=== PATIENT | female | born 1955 | race Caucasian/White ===

== ENCOUNTER 2017-11-20 10:19 | Emergency (ER) | payer BC ==
[~2017-11-20] VITALS: Ht 170.2 cm; Wt 113.0 kg
[~2017-11-20 10:19] MED LIST: AMOXICILLIN500 MG PO; CEPHALEXIN500 MG OR; FIORICET OR; FIORICET PO; LORTAB 5 OR; LORTAB 7.5 OR; MELOXICAM7.5 MG PO; MOTRIN800 MG OR; NAPROSYN500 MG PO; NO HOME MEDS; TYLENOL500 MG OR
[2017-11-20] MEDS ORDERED: SYNTHROID100 MCG PO (10:38)
[2017-11-20 11:49] LABS: INFLUENZA A NONE DETECTED (NONE DETECT); INFLUENZA B POSITIVE (NONE DETECT)
[2017-11-20] MEDS ORDERED: TAM75CAP PO (11:59)
[2017-11-20 12:09] VITALS: BP 137/97
== END 2017-11-20 12:14 | disposition home or self-care (01) | DRG 195 ==
LOC: ED 10:19
PROVIDERS: Family Medicine
DX: J10.1 Influenza due to other identified influenza virus with other respiratory manifestations (principal); H92.03 Otalgia, bilateral; R05 Cough; R09.89 Other specified symptoms and signs involving the circulatory and respiratory systems; R50.9 Fever, unspecified

== ENCOUNTER 2018-03-20 09:07 | Observation (INO) | payer BC ==
[~2018-03-20] VITALS: Ht 170.2 cm; Wt 112.0 kg
[~2018-03-20 09:07] MED LIST changes: +SYNTHROID100 MCG PO; +TAM75CAP PO
[2018-03-20 09:41] LABS: BUN 11 mg/dL (7-17); BUN/CREATININE RATIO 15 (12-20 (CALC)); CARBON DIOXIDE 27 mmol/l (22-30); CHLORIDE 105 mmol/l (95-108); CREATININE 0.7 mg/dL (0.5-1.0); GFR > 60 ML/MIN (>=60 (CALC)); GFR FOR AFR.AMER. > 60 ML/MIN (>=60 (CALC)); POTASSIUM 3.7 mmol/l (3.5-5.1)
[2018-03-20 09:46] LABS: ANION GAP 10 (6-22 (CALC)); SODIUM 138 mmol/l (137-146)
[2018-03-20 09:52] LABS: HEMATOCRIT 36.5 % (37.0-47.0); HEMOGLOBIN 11.3 g/dl (12.0-16.0); IMMATURE GRANULOCYTES 0.5 % (0.0-1.0); MEAN CELL VOLUME 80.2 fL CALC (80.0-100.0); MEAN CORPUSCULAR HGB 24.8 pG CALC (26.0-32.0); NEUT# 4.03 thou/uL (2.00-7.15); RED BLOOD COUNT 4.55 mill/uL (4.20-5.60); RED CELL DISTRI WIDTH 15.2 % (11.5-15.5)
[2018-03-20 11:03] VITALS: BP 123/84
[2018-03-20 14:21] LABS: URINE BILIRUBIN - DIPSTICK NEGATIVE (NEGATIVE); URINE BLOOD DIPSTICK NEGATIVE (NEGATIVE); URINE COLOR YELLOW; URINE GLUCOSE - DIPSTICK NEGATIVE (NEGATIVE); URINE KETONE NEGATIVE (NEGATIVE); URINE LEUK ESTERASE NEGATIVE (NEGATIVE); URINE NITRITE - DIPSTICK NEGATIVE (Negative); URINE PH 6.5 (4.5-8.0); URINE PROTEIN - DIPSTICK NEGATIVE (NEG-TRACE); URINE SPECIFIC GRAVITY <=1.005; URINE UROBILINOGEN - DIPSTICK 0.2 E.U./dL (0.2)
[2018-03-20 14:23] LABS: URINE CLARITY CLEAR
[2018-03-20 15:28] VITALS: BP 124/83
[2018-03-20 19:11] VITALS: BP 121/83
[2018-03-20 23:48] VITALS: BP 111/74
[2018-03-21 04:40] VITALS: BP 105/71
[2018-03-21 07:41] VITALS: BP 113/78
[2018-03-21] MEDS ORDERED: SYNTHROID88 MCG PO (08:14)
== END 2018-03-21 09:35 | disposition home or self-care (01) | DRG 313 ==
LOC: ED 09:07 → ED-I 09:58 → ED 10:10 → MS2 10:11
PROVIDERS: Family Medicine; Nurse Practitioner Family; ADMIT Internal Medicine; ATTEND Internal Medicine
DX: R07.2 Precordial pain (principal); E03.9 Hypothyroidism, unspecified; D64.9 Anemia, unspecified; Z85.41 Personal history of malignant neoplasm of cervix uteri; Z73.3 Stress, not elsewhere classified; Z68.38 Body mass index [BMI] 38.0-38.9, adult
CPT/HCPCS: G0378

== ENCOUNTER → 2018-11-14 | Outpatient (REF) ==
[~2018-11-14] MED LIST changes: +MECLIZINE25 MG PO; +ONDANSETRON4 MG PO; +SYNTHROID88 MCG PO
== END | disposition home or self-care (01) | DRG 951 ==
LOC: PAGE 09:00
PROVIDERS: ATTEND Nurse Practitioner Family
DX: Z23 Encounter for immunization (principal)

== ENCOUNTER 2018-12-06 08:32 | Emergency (ER) | payer OTHER ==
[~2018-12-06] VITALS: Ht 170.2 cm; Wt 110.0 kg
[~2018-12-06 08:32] MED LIST changes: -MECLIZINE25 MG PO; -ONDANSETRON4 MG PO
[2018-12-06 09:03] LABS: HEMATOCRIT 36.2 % (37.0-47.0); HEMOGLOBIN 11.1 g/dl (12.0-16.0); IMMATURE GRANULOCYTES 0.6 % (0.0-5.0); MEAN CELL VOLUME 84.2 fL CALC (80.0-100.0); MEAN CORPUSCULAR HGB 25.8 pG CALC (26.0-32.0); MEAN CORPUSCULAR HGB CONC 30.7 g/L CALC (32.0-36.0); NEUT# 4.04 thou/uL (2.00-7.15); RED BLOOD COUNT 4.3 mill/uL (4.20-5.60); RED CELL DISTRI WIDTH 15.7 % (11.5-15.5)
[2018-12-06 09:20] LABS: ALBUMIN 3.9 g/dL (3.2-5.0); ALKALINE PHOSPHATASE 74 u/l (38-126); ANION GAP 13 (6-22 (CALC)); BILIRUBIN, TOTAL 0.8 mg/dL (0.0-1.4); BUN 11 mg/dL (8-23); BUN/CREATININE RATIO 16 (12-20 (CALC)); CARBON DIOXIDE 25 mmol/l (22-30); CHLORIDE 106 mmol/l (95-108); CREATININE 0.7 mg/dL (0.5-1.0); GFR > 60 ML/MIN (>=60 (CALC)); GFR FOR AFR.AMER. > 60 ML/MIN (>=60 (CALC)); LIPASE 78 u/l (23-300); SGOT/AST 19 u/l (9-36); SODIUM 140 mmol/l (137-146); TOTAL PROTEIN 6.7 g/dL (6.3-8.2)
[2018-12-06] MEDS ORDERED: MECLIZINE25 MG PO (10:53)
[2018-12-06] MEDS ORDERED: ONDANSETRON4 MG PO (10:53)
[2018-12-06 11:20] VITALS: BP 140/78
== END 2018-12-06 11:20 | disposition home or self-care (01) ==
LOC: ED 08:32
PROVIDERS: Family Medicine
DX: R07.9 Chest pain, unspecified (principal); R42 Dizziness and giddiness; R11.2 Nausea with vomiting, unspecified
CPT/HCPCS: J2060

== ENCOUNTER → 2021-06-01 | Outpatient (REF) ==
[~2021-06-01] MED LIST changes: +MECLIZINE25 MG PO; +ONDANSETRON4 MG PO
== END | disposition home or self-care (01) | DRG 103 ==
LOC: LAB 13:16
PROVIDERS: ATTEND Family Medicine
DX: R51.9 Headache, unspecified (principal)

== ENCOUNTER 2024-03-25 11:39 | Emergency (ER) | payer OTHER, MEDICARE ==
[2024-03-25] VITALS (8 sets, daily range): BP systolic 121–145; BP diastolic 74–96
[~2024-03-25] VITALS: Ht 170.2 cm; Wt 251.0 kg
[2024-03-25] MEDS ORDERED: KETOROLAC TROMETHAMINE 30 MG/ML SDV IV ONE (12:30)
[2024-03-25] MEDS ORDERED: methylPREDNISolone SODIUM SUCC 125 MG/2 ML SDV IV ONE (12:30)
[2024-03-25] MEDS ORDERED: SODIUM CHLORIDE 0.9% 1,000 ML IV ONE (12:30)
[2024-03-25] MEDS ORDERED: AMPICILLIN & SULBACTAM SODIUM 3 GM in SODIUM CHLORIDE 0.9% 100 ML IV ONE (12:35)
[2024-03-25 13:11] LABS: BASO% 0.6 % (0-3); EOS% 2.2 % (0-8); HEMATOCRIT 32.4 % (37.0-47.0); HEMOGLOBIN 9.5 g/dl (12.0-16.0); IMMATURE GRANULOCYTES 0.4 % (0.0-5.0); LYMPH% 12.3 % (15-41); MEAN CELL VOLUME 77.7 fL CALC (80.0-100.0); MEAN CORPUSCULAR HGB 22.8 pG CALC (26.0-32.0); MEAN CORPUSCULAR HGB CONC 29.3 g/dL CAL (32.0-36.0); MONO% 6.7 % (2-13); NEUT# 6.15 thou/uL (2.00-7.15); NEUT% 77.8 % (42-76); RED BLOOD COUNT 4.17 mill/uL (4.20-5.60); RED CELL DISTRI WIDTH 16.8 % (11.5-15.5)
[2024-03-25] MEDS ORDERED: IPRATROPIUM-Albuterol 0.5MG-2.5MG/3 ML NEB ONE (13:20)
[2024-03-25 13:24] LABS: BILIRUBIN, TOTAL 0.9 mg/dL (0.02-1.3); CREATININE 0.8 mg/dL (0.5-1.0); POTASSIUM 3.7 mmol/l (3.5-5.1); TOTAL PROTEIN 7.1 g/dL (6.3-8.2)
[2024-03-25] MEDS ORDERED: PROAIR HFA IN ×2 (15:55→16:02)
[2024-03-25] MEDS ORDERED: PREDNISONE20 MG PO ×2 (15:55→16:01)
[2024-03-25] MEDS ORDERED: AMOX/K CLAV875 M1 PO ×2 (16:03→17:01)
== END 2024-03-25 16:20 | disposition home or self-care (01) | DRG 153 ==
LOC: ED 11:39
PROVIDERS: Nurse Practitioner
DX: J01.90 Acute sinusitis, unspecified (principal); Z20.822 Contact with and (suspected) exposure to COVID-19
CPT/HCPCS: Q9967

== ENCOUNTER 2024-09-10 10:53 | Inpatient (IN) | payer OTHER, MEDICARE ==
[~2024-09-10] VITALS: Ht 170.2 cm; Wt 106.0 kg
[2024-09-10] VITALS (19 sets, daily range): BP systolic 104–148; BP diastolic 57–85
[~2024-09-10 10:53] MED LIST changes: +AMOX/K CLAV875 M1 PO; +PREDNISONE20 MG PO; +PROAIR HFA IN
[2024-09-10] MEDS ORDERED: ACETAMINOPHEN 500 MG TAB PO ONE (11:40)
[2024-09-10 11:41] LABS: BASO% 0.2 % (0-3); HEMATOCRIT 30.5 % (37.0-47.0); HEMOGLOBIN 8.5 g/dl (12.0-16.0); IMMATURE GRANULOCYTES 0.2 % (0.0-5.0); LYMPH% 6.3 % (15-41); MEAN CELL VOLUME 72.1 fL CALC (80.0-100.0); MEAN CORPUSCULAR HGB 20.1 pG CALC (26.0-32.0); MEAN CORPUSCULAR HGB CONC 27.9 g/dL CAL (32.0-36.0); MONO% 4.7 % (2-13); NEUT# 11.39 thou/uL (2.00-7.15); NEUT% 88.6 % (42-76); RED BLOOD COUNT 4.23 mill/uL (4.20-5.60); RED CELL DISTRI WIDTH 18.3 % (11.5-15.5)
[2024-09-10] MEDS ORDERED: ONDANSETRON HCl 4 MG/2 ML SDV IV ONE (11:50)
[2024-09-10] MEDS ORDERED: SODIUM CHLORIDE 0.9% 1,000 ML IV ONE (11:50)
[2024-09-10 11:53] LABS: ALBUMIN 4.2 g/dL (3.2-5.0); TOTAL PROTEIN 6.8 g/dL (6.3-8.2)
[2024-09-10] MEDS ORDERED: cefTRIAXone SODIUM 2 GM in SODIUM CHLORIDE 0.9% 100 ML IV ONE (12:05)
[2024-09-10] MEDS ORDERED: AZITHROMYCIN 500 MG in SODIUM CHLORIDE 0.9% 250 ML IV ONE (12:05)
[2024-09-10 12:17] LABS: BILIRUBIN, TOTAL 1.5 mg/dL (0.02-1.3)
[2024-09-10 12:20] LABS: CREATININE 0.8 mg/dL (0.5-1.0)
[2024-09-10] MEDS ORDERED: PROMETHAZINE HCL 25 MG/ML AMP IM ONE (12:50)
[2024-09-10] MEDS ORDERED: MAGNESIUM HYDROXIDE 30 ML UDC PO PRN (17:05)
[2024-09-10] MEDS ORDERED: IPRATROPIUM-Albuterol 0.5MG-2.5MG/3 ML NEB PRN (17:05)
[2024-09-10] MEDS ORDERED: ACETAMINOPHEN 325 MG/TAB PO PRN (17:05)
[2024-09-10] MEDS ORDERED: SODIUM CHLORIDE 0.9% 1,000 ML IV PRN (17:05)
[2024-09-10] MEDS ORDERED: IBUPROFEN 600 MG/TAB PO ONE (17:45)
[2024-09-10] MEDS ORDERED: ENOXAPARIN SODIUM 40 MG/0.4 ML SYR SC SCH (21:00)
[2024-09-11] VITALS (17 sets, daily range): BP systolic 93–136; BP diastolic 49–77
[2024-09-11 05:20] LABS: CREATININE 0.8 mg/dL (0.5-1.0); MAGNESIUM 2.1 mg/dL (1.6-2.3); POTASSIUM 3.6 mmol/l (3.5-5.1)
[2024-09-11 05:26] LABS: ALBUMIN 3.1 g/dL (3.2-5.0); TOTAL PROTEIN 5.3 g/dL (6.3-8.2)
[2024-09-11 05:39] LABS: BASO% 0.3 % (0-3); EOS% 0.1 % (0-8); HEMATOCRIT 26.4 % (37.0-47.0); HEMOGLOBIN 7.2 g/dl (12.0-16.0); IMMATURE GRANULOCYTES 0.3 % (0.0-5.0); LYMPH% 9.4 % (15-41); MEAN CELL VOLUME 73.5 fL CALC (80.0-100.0); MEAN CORPUSCULAR HGB 20.1 pG CALC (26.0-32.0); MEAN CORPUSCULAR HGB CONC 27.3 g/dL CAL (32.0-36.0); MONO% 4.8 % (2-13); NEUT# 10.08 thou/uL (2.00-7.15); NEUT% 85.1 % (42-76); RED BLOOD COUNT 3.59 mill/uL (4.20-5.60); RED CELL DISTRI WIDTH 18.6 % (11.5-15.5)
[2024-09-11] MEDS ORDERED: IBUPROFEN 600 MG/TAB PO PRN (12:20)
[2024-09-11] MEDS ORDERED: AZITHROMYCIN 500 MG in SODIUM CHLORIDE 0.9% 250 ML IV SCH (13:00)
[2024-09-11] MEDS ORDERED: SODIUM CHLORIDE 0.9% 250 ML IV PRN (16:20)
[2024-09-11] MEDS ORDERED: FUROSEMIDE 40 MG/4 ML SDV IV SCH (22:00)
[2024-09-12] VITALS (10 sets, daily range): BP systolic 94–131; BP diastolic 58–79
[2024-09-12] MEDS ORDERED: FUROSEMIDE 40 MG/4 ML SDV IV SCH (00:50)
[2024-09-12 05:47] LABS: BASO% 0.7 % (0-3); EOS% 0.4 % (0-8); HEMATOCRIT 29.2 % (37.0-47.0); HEMOGLOBIN 8.8 g/dl (12.0-16.0); IMMATURE GRANULOCYTES 0.2 % (0.0-5.0); LYMPH% 16.9 % (15-41); MEAN CELL VOLUME 76.2 fL CALC (80.0-100.0); MEAN CORPUSCULAR HGB CONC 30.1 g/dL CAL (32.0-36.0); MONO% 6.9 % (2-13); NEUT# 6.88 thou/uL (2.00-7.15); NEUT% 74.9 % (42-76); RED BLOOD COUNT 3.83 mill/uL (4.20-5.60)
[2024-09-12 05:48] LABS: BILIRUBIN, TOTAL 1.2 mg/dL (0.02-1.3); CREATININE 0.8 mg/dL (0.5-1.0); MAGNESIUM 2.1 mg/dL (1.6-2.3); POTASSIUM 3.5 mmol/l (3.5-5.1); TOTAL PROTEIN 5.3 g/dL (6.3-8.2)
[2024-09-12] MEDS ORDERED: PNEUMOCOCCAL 20-VALENT CONJUGA 0.5 ML/DOSE INJ IM SCH (09:00)
[2024-09-12] MEDS ORDERED: Polyethylene Glycol 3350 17 GM/PKT PO SCH (09:00)
[2024-09-12] MEDS ORDERED: ONDANSETRON HCl 4 MG/2 ML SDV IV PRN (10:30)
[2024-09-12] MEDS ORDERED: IRON SUCROSE COMPLEX 20 MG/ML 10ML VIAL IV ONE (12:20)
[2024-09-12] MEDS ORDERED: AZITHROMYCIN 500 MG in SODIUM CHLORIDE 0.9% 500 ML IV SCH (13:00)
[2024-09-12] MEDS ORDERED: IRON SUCROSE IV SCH (14:00)
[2024-09-12] MEDS ORDERED: SODIUM CHLORIDE 0.9% IV SCH (14:00)
[2024-09-13 00:10] VITALS: BP 133/80
[2024-09-13 00:28] VITALS: BP 133/80
[2024-09-13 04:15] VITALS: BP 124/78
[2024-09-13 04:50] VITALS: BP 124/78
[2024-09-13 05:32] LABS: BASO% 0.6 % (0-3); EOS% 2.3 % (0-8); HEMATOCRIT 29.7 % (37.0-47.0); HEMOGLOBIN 8.9 g/dl (12.0-16.0); IMMATURE GRANULOCYTES 0.3 % (0.0-5.0); LYMPH% 17.5 % (15-41); MEAN CELL VOLUME 76.5 fL CALC (80.0-100.0); MEAN CORPUSCULAR HGB 22.9 pG CALC (26.0-32.0); MONO% 8.8 % (2-13); NEUT# 4.35 thou/uL (2.00-7.15); NEUT% 70.5 % (42-76); RED BLOOD COUNT 3.88 mill/uL (4.20-5.60)
[2024-09-13 05:46] LABS: ALBUMIN 2.8 g/dL (3.2-5.0); CREATININE 0.7 mg/dL (0.5-1.0); MAGNESIUM 2.1 mg/dL (1.6-2.3); POTASSIUM 3.7 mmol/l (3.5-5.1); TOTAL PROTEIN 5.2 g/dL (6.3-8.2)
[2024-09-13 05:49] LABS: BILIRUBIN, TOTAL 0.7 mg/dL (0.02-1.3)
[2024-09-13 07:09] VITALS: BP 121/72
[2024-09-13 10:30] VITALS: BP 123/75
[2024-09-13] MEDS ORDERED: DOXYCYCLINE100 MG PO (10:34)
[2024-09-13] MEDS ORDERED: PROTONIX40 M2 PO (11:06)
[2024-09-13] MEDS ORDERED: IRON325 M1 PO (11:35)
== END 2024-09-13 12:30 | disposition home or self-care (01) | DRG 195 ==
LOC: ED 10:53 → ED-I 12:30 → ED 16:21 → MS2 16:22
PROVIDERS: Family Medicine; Nurse Practitioner Family; ADMIT Internal Medicine; ATTEND Internal Medicine
PROC: 30233N1 Transfusion of Nonautologous Red Blood Cells into Peripheral Vein, Percutaneous Approach (ICD-10-PCS; principal; 2024-09-11)
PROC: 30233N1 Transfusion of Nonautologous Red Blood Cells into Peripheral Vein, Percutaneous Approach (ICD-10-PCS; 2024-09-11)
DX: J18.9 Pneumonia, unspecified organism (principal); D64.9 Anemia, unspecified; R19.5 Other fecal abnormalities; E03.9 Hypothyroidism, unspecified; Z85.41 Personal history of malignant neoplasm of cervix uteri; Z20.822 Contact with and (suspected) exposure to COVID-19
CPT/HCPCS: J0456; J0696; J1650; J1756; J1940; J2405; J2550; P9016; Q9967

== ENCOUNTER 2024-10-22 09:16 | Day surgery (SDC) | payer OTHER, MEDICARE ==
[~2024-10-22 09:16] MED LIST changes: +CLONAZEPAM0.5 M1 PO; +DOXYCYCLINE100 MG PO; +GINGER EXTRA250 MG PO; +IRON325 M1 PO; +LEVOTHYROXIN75 MC1 PO; +MOTRIN400 MG/TAB PO; +MULTI VIT PO; +OZEMPIC 8 MG/3M1 INJ SC; +PROTONIX40 M2 PO; +SPIRULINA500 MG PO
[2024-10-22] MEDS ORDERED: FAMOTIDINE 10MG/ML 2ML SDV IV ONE (09:50)
[2024-10-22] MEDS ORDERED: LACTATED RINGER'S 1,000 ML IV ONE (09:50)
[2024-10-22] MEDS ORDERED: SODIUM CHLORIDE 20 ML/VIAL SDV ONE (11:10)
[2024-10-22 12:35] VITALS: BP 138/78
[2024-10-22] MEDS ORDERED: GLYCOPYRROLATE 0.2 MG/ML IV ONE (13:12)
[2024-10-22] MEDS ORDERED: PROPOFOL 200 MG/20 ML VIAL IV ONE (13:12)
[2024-10-22] MEDS ORDERED: REMIMAZOLAM BESYLATE 20 MG/VIAL INJ IV ONE (13:12)
[2024-10-22] MEDS ORDERED: LIDOCAINE HCL 2% 2ML SDV IV ONE (13:12)
== END 2024-10-22 12:56 | disposition home or self-care (01) | DRG 379 ==
LOC: ORM 09:16
PROVIDERS: ATTEND Surgery
PROC: 0DBN8ZX Excision of Sigmoid Colon, Via Natural or Artificial Opening Endoscopic, Diagnostic (ICD-10-PCS; principal; 2024-10-22)
PROC: 0DB98ZX Excision of Duodenum, Via Natural or Artificial Opening Endoscopic, Diagnostic (ICD-10-PCS; 2024-10-22)
PROC: 0DB68ZX Excision of Stomach, Via Natural or Artificial Opening Endoscopic, Diagnostic (ICD-10-PCS; 2024-10-22)
DX: K29.51 Unspecified chronic gastritis with bleeding (principal); K29.81 Duodenitis with bleeding; D12.5 Benign neoplasm of sigmoid colon; K64.8 Other hemorrhoids; K21.9 Gastro-esophageal reflux disease without esophagitis; Z86.0100 Personal history of colon polyps, unspecified
CPT/HCPCS: J1596; J2249